=== PATIENT | male | born 1985 | race Two or more races ===

== ENCOUNTER 2017-10-11 17:12 | Emergency (ER) | payer OTHER ==
[~2017-10-11] VITALS: Ht 177.8 cm; Wt 122.5 kg
[2017-10-11] MEDS ORDERED: ATENOLOL 25 MG TAB PO ONE (19:00)
[2017-10-11 19:22] VITALS: BP 144/64
== END 2017-10-11 20:07 | disposition home or self-care (01) ==
LOC: ER 17:16
DX: R00.0 Tachycardia, unspecified (principal)
CPT/HCPCS: 82962; 93005

== ENCOUNTER 2018-10-13 07:46 | Emergency (ER) | payer MEDICAID, OTHER ==
[~2018-10-13] VITALS: Ht 177.8 cm; Wt 113.4 kg
[2018-10-13 08:11] LABS: Urine Bacteria FEW /hpf (None Seen); Urine Blood Negative /uL (Negative); Urine Mucus FEW (None Seen); Urine Specific Gravity 1.032 (1.001-1.035); Urine WBC 2 /hpf (0 - 3)
[2018-10-13 08:21] VITALS: BP 135/76
[2018-10-13] MEDS ORDERED: METHOCARBAMOL 500 MG TAB PO ONE (08:30)
== END 2018-10-13 08:56 | disposition home or self-care (01) ==
LOC: ER 07:46
DX: N39.0 Urinary tract infection, site not specified (principal); Z90.49 Acquired absence of other specified parts of digestive tract
CPT/HCPCS: 72100; 81001

== ENCOUNTER 2019-04-21 09:45 | Emergency (ER) | payer MEDICAID ==
[~2019-04-21] VITALS: Ht 177.8 cm; Wt 129.3 kg
[2019-04-21] MEDS ORDERED: NITROGLYCERIN 0.4 MG SL TAB SL ONE (10:00)
[2019-04-21] MEDS ORDERED: PANTOPRAZOLE 40 MG TAB PO ONE (10:00)
[2019-04-21] MEDS ORDERED: ASPirin 81 mg TAB PO ONE (10:00)
[2019-04-21 10:14] LABS: Basophils # (auto) 0 uL; Basophils % (auto) 0.5 % (0.0-2.0); Eosinophils # (auto) 0 uL; Eosinophils % (auto) 0.6 % (0.0-7.0); Hemoglobin 15.4 g/dL (13.5-17.5); Lymphocytes # (auto) 1.1 uL; Lymphocytes % (auto) 14.6 % (10.0-50.0); Mean Corpuscular Hemoglobin 31.7 pg (28.0-32.0); Mean Corpuscular Hgb Conc. 33.4 g/dL (32.0-36.0); Mean Corpuscular Volume 94.9 fL (80.0-100.0); Monocytes # (auto) 0.6 uL; Monocytes % (auto) 8.4 % (0.0-12.0); Neutrophils # (auto) 5.7 uL; Neutrophils % (auto) 75.9 % (37.0-80.0); Platelet Count (auto) 173 10^3/uL (140-450); Red Blood Cells 4.85 10^6/uL (4.5-5.90); White Blood Cell 7.5 10^3/uL (4.4-10.8)
[2019-04-21 10:29] LABS: Albumin 4.1 g/dL (3.4-5.0); Anion Gap 4 (5-15); Blood Urea Nitrogen 14 mg/dL (7-18); Carbon Dioxide 27 mmol/L (21-32); Chloride 107 mmol/L (98-107); Glucose 108 mg/dL (74-106); Potassium 3.9 mmol/L (3.5-5.1); Sodium 138 mmol/L (136-145)
[2019-04-21 10:34] LABS: Alanine Aminotransferase 64 U/L (16-61); Alkaline Phosphatase 85 U/L (45-117); Aspartate Aminotransferase 86 U/L (15-37); BUN/Creatinine Ratio 17.7; Bilirubin, Total 1.3 mg/dL (0.2-1.0); GFR African American 144 mL/min; GFR Non-African American 119 mL/min; Total Protein 7.9 g/dL (6.4-8.2)
[2019-04-21 15:30] VITALS: BP 118/75
== END 2019-04-21 15:40 | disposition home or self-care (01) ==
LOC: ER 09:48
DX: R07.2 Precordial pain (principal); K29.70 Gastritis, unspecified, without bleeding; K21.9 Gastro-esophageal reflux disease without esophagitis
CPT/HCPCS: 36415; 80053; 84484; 85025; 93005

== ENCOUNTER 2024-11-25 09:32 | Outpatient (CLI) | payer BC ==
[2024-11-25 10:03] LABS: Hematocrit 45.4 % (41.0-53.0); Hemoglobin 15.9 g/dL (13.5-17.5); Mean Corpuscular Hemoglobin 32.6 pg (28.0-32.0); Mean Corpuscular Volume 93.2 fL (80.0-100.0); Nucleated Red Blood Cells % 0.1 %
[2024-11-25 10:37] LABS: Urine Protein, UAD Negative (Negative)
[2024-11-25 11:27] LABS: Alanine Aminotransferase 20 U/L (7-40); Albumin 4.6 g/dL (3.2-4.8); Alkaline Phosphatase 100 U/L (46-116); Anion Gap 9 (5-15); BUN/Creatinine Ratio 22.1 (10.0-20.0); Bilirubin, Total 0.9 mg/dL (0.2-1.0); Blood Urea Nitrogen 17 mg/dL (9-23); Calcium 9.3 mg/dL (8.7-10.4); Carbon Dioxide 25 mmol/L (20-31); Potassium 4.0 mmol/L (3.5-5.1); Sodium 143 mmol/L (136-145); Total Protein 7.0 g/dL (5.7-8.2)
[2024-11-25 11:28] LABS: Chloride 109 mmol/L (98-107); Glucose 109 mg/dL (74-106)
[2024-11-25 12:11] LABS: Prostate Specific Antigen 0.37 ng/mL (0.0-4.0)
[2024-11-25 12:16] LABS: Free T4 (Free Thyroxine) 1.13 ng/dL (0.89-1.76)
[2024-11-25 12:26] LABS: Triglycerides 64 mg/dL (< 150)
[2024-11-25 12:28] LABS: Cholesterol 155 mg/dL (< 200); HDL Cholesterol 54 mg/dL (40-59)
[2024-11-25 16:28] LABS: Hepatitis A Total Antibody Negative (Negative); Hepatitis B Surface Antigen Negative (Negative); Hepatitis C Antibody Negative (Negative)
[2024-11-27 01:06] LABS: Chlamydia Trachomatis, NAA Negative (Negative); Neisseria gonorrhoeae, NAA Negative (Negative)
== END 2024-11-25 17:00 | disposition home or self-care (01) ==
LOC: LAB 09:32
PROVIDERS: ATTEND Nurse Practitioner Family
DX: E03.9 Hypothyroidism, unspecified (principal); E78.9 Disorder of lipoprotein metabolism, unspecified; E55.9 Vitamin D deficiency, unspecified; R73.9 Hyperglycemia, unspecified; Z12.5 Encounter for screening for malignant neoplasm of prostate; Z11.3 Encounter for screening for infections with a predominantly sexual mode of transmission
CPT/HCPCS: 36415; 80053; 80061; 81001; 82306; 83036; 84153; 84439; 84443; 85025; 86703; 86704; 86706; 86708; 86780; 86803; 87340

== ENCOUNTER 2025-01-22 13:33 | Emergency (ER) | payer BC ==
[~2025-01-22] VITALS: Ht 167.6 cm; Wt 77.2 kg
[2025-01-22 13:48] VITALS: TEMP 98.2
--- NOTE | 2025-01-22 14:18 | ED.PDOC ---
HPI Comments 39-year-old male presents here with chest discomfort. He states it is a burning pain that began around 10:00 p.m. last night and went to bed with it. He states he ate dinner at around 8:00 p.m. which is normal for him. He states pain lasts throughout the night. Went away by itself. He states he woke up this morning with discomfort again. Denies any radiation to the left jaw or left arm or anywhere else. States he has been well otherwise no recent fever chills cough c old runny nose. Currently chest pain-free. No significant family history of heart disease. not a smoker. Chief Complaint: Chest Pain Time Seen by MD: 15:15 Reviewed Notes: Nurses Notes, Medications, Allergies Allergies: Coded Allergies: NO KNOWN ALLERGIES (Unverified , 10/11/17) Information Source: Patient Mode of Arrival: Ambulatory Severity: Moderate Timing: Came on: Suddenly Duration: Since onset Prehospital treatment: None Location: Substernal Radiation: No Radiation Quality: Aching Onset: With Light Exertion Cardiac Risk Factors: None PE Risk Factors: None History of: None Associated Signs and Symptoms: None Past Medical History PAST MEDICAL HISTORY: GERD Surgical History: Denies all surgeries Family History Family History: Reviewed,noncontributory to illness, Unknown Social History Smoker: Non-Smoker Alcohol: Rarely, Unknown Drugs: Denies Drug Use Lives In: Home Constitutional: denies: chills, diaphoresis, fatigue, fever, malaise, sweats, weakness, others EENTM: denies: blurred vision, double vision, ear bleeding, ear discharge, ear drainage, ear pain, ear ringing, eye pain, eye redness, hearing loss, mouth pain, mouth swelling, nasal discharge, nose bleeding, nose congestion, nose pain, photophobia, tearing, throat pain, throat swelling, voice changes, others Respiratory: denies: cough, hemoptysis, orthopnea, SOB at rest, shortness of breath, SOB with excertion, stridor, wheezing, others Cardiovascular: denies: chest pain, dizzy spells, diaphoresis, Dyspnea on exertion, edema, irregular heart beat, left arm pain, lightheadedness, palpitations, PND, syncope, others Gastrointestinal: reports: abdominal pain; denies: abdomen distended, blood streaked bowels, constipated, diarrhea, dysphagia, difficulty swallowing, hematemesis, melena, nausea, poor appetite, poor fluid intake, rectal bleeding, rectal pain, vomiting, others Genitourinary: denies: burning, dysuria, flank pain, frequency, hematuria, incontinence, penile discharge, penile sore, pain, testicle pain, testicle swelling, urgency, others Neurological: denies: dizziness, fainting, headache, left sided numbness, left sided weakness, numbness, paresthesia, pre-existing deficit, right sided numbness, right sided weakness, seizure, speech problems, tingling, tremors, weakness, others Musculoskeletal: denies: back pain, gout, joint pain, joint swelling, muscle pain, muscle stiffness, neck pain, others Integumetry: denies: bruises, change in color, change in hair/nails, dryness, laceration, lesions, lumps, rash, wounds, others Allergic/Immunocompromised: denies: Difficulty Healing, Frequent Infections, Hives, Itching, others Hematologic/Lymphatic: denies: anemia, blood clots, easy bleeding, easy bruising, swollen glands, others Endocrine: denies: excessive hunger, excessive sweating, excessive thirst, excessive urination, flushing, intolerance to cold, intolerance to heat, unexplained weight gain, unexplained weight loss, others Psychiatric: denies: anxiety, bipolar disorder, depression, hopeless, panic disorder, schizophrenia, sleepless, suicidal, others All Other Systems: Reviewed and Negative Physical Exam General Appearance: No Apparent Distress, Normal HEENT: Normal ENT Inspection, Pharynx Normal, TMs Normal Neck: Full Range of Motion, Non-Tender, Normal, Normal Inspection Respiratory: Chest Non-Tender, Lungs Clear, No Accessory Muscle Use, No Respiratory Distress, Normal Breath Sounds Cardiovascular: No Edema, No JVD, No Murmur, No Gallop, Normal Peripheral Pulses, Regular Rate/Rhythm Breast Exam: Deferred Gastrointestinal: No Organomegaly, Non Tender, No Pulsatile Mass, Normal Bowel Sounds, Soft Genitalia: Deferred Pelvic: Deferred Rectal: Deferred Extremities: No calf tenderness, Normal capillary refill, Normal inspection, Normal range of motion, Non-tender, No pedal edema Musculoskeletal : Apperance: Normal Neurologic: Alert, public health technologist II-XII nml as Tested, No Motor Deficits, Normal Affect, Normal Mood, No Sensory Deficits Cerebellar Function: Normal Reflexes: Normal Skin: Dry, Normal Color, Warm Lymphatic: No Adenopathy EKG EKG : Pulse Rate (adult): 95 [place]: Normal Cardiac Rhythm: NSR Block: None Hypertrophy: None ST: Normal Comments Rate of [address] rhythm no significant ST changes Was a procedure done? Was a procedure done?: No CP Differential Dx Differential Diagnosis: N/A Differential Diagnosis: N/A Differential Diagnosis: Angina, Chest Wall Pain, Cholelithiasis, Esophageal reflux/spasm, Gastritis, Myocardial Infarction, Pericarditis, Pneumonia, Pulmonary Embolus X-Ray, Labs, Meds, VS Vital Signs Date Time Temp Pulse Resp B/P (MAP) Pulse Ox O2 Delivery O2 Flow Rate FiO2 01/22/25 15:21 95 01/22/25 13:48 98.2 96 18 154/90 96 98.2 01/22/25 13:35 95 Lab Test 01/22/25 16:36 01/22/25 15:29 Range/Units Troponin I High Sensitivity Pending < 3 L </=54 ng/L White Blood Count 8.9 4.4-10.8 10^3/uL Red Blood Count 5.00 4.5-5.90 10^6/uL Hemoglobin 15.9 13.5-17.5 g/dL Hematocrit 46.9 41.0-53.0 % Mean Corpuscular Volume 93.8 80.0-100.0 fL Mean Corpuscular Hemoglobin 31.7 28.0-32.0 pg Mean Corpuscular Hemoglobin Concent 33.8 32.0-36.0 g/dL Red Cell Distribution Width 13.5 11.8-14.3 % Platelet Count 195 140-450 10^3/uL Mean Platelet Volume 7.8 6.9-10.8 fL Neutrophils (%) (Auto) 70.5 37.0-80.0 % Lymphocytes (%) (Auto) 21.3 10.0-50.0 % Monocytes (%) (Auto) 7.3 0.0-12.0 % Eosinophils (%) (Auto) 0.6 0.0-7.0 % Basophils (%) (Auto) 0.3 0.0-2.0 % Neutrophils # (Auto) 6.3 1.6-8.6 10 ^3/uL Lymphocytes # (Auto) 1.9 0.4-5.4 10 ^3/uL Monocytes # (Auto) 0.7 0-1.3 10 ^3/uL Eosinophils # (Auto) 0 0-0.8 10 ^3/uL Basophils # (Auto) 0 0-0.2 10 ^3/uL Nucleated Red Blood Cells 0.1 % Sodium Level 142 136-145 mmol/L Potassium Level 3.8 3.5-5.1 mmol/L Chloride Level 106 98-107 mmol/L Carbon Dioxide Level 26 20-31 mmol/L Anion Gap 10 5-15 Blood Urea Nitrogen 16 9-23 mg/dL Creatinine 0.75 0.700-1.30 mg/dL Glomerular Filtration Rate Calc 116 >90 mL/min BUN/Creatinine Ratio 21.3 H 10.0-20.0 Serum Glucose 89 74-106 mg/dL Calcium Level 9.7 8.7-10.4 mg/dL [place] [id number] Ph: [phone] DIAGNOSTIC IMAGING Diagnostic Imaging Report : [id number] Signed PATIENT: ITALO CHAVIS ACCT: [id number] UNIT: [id number] : 1985 LOC: ER ROOM / BED: / AGE / SEX: 39 / M ADM STATUS: REG ER SERVICE 11 ORDERING PHYSICIAN: YASSINE GILL MD PROCEDURE(s): CXR2 - CHEST TWO VIEWS ROUTINE REASON: Chest pain ORDER NUMBER(s): [id number], ACCESSION NUMBER(s): [id number] EXAM: XY CHEST TWO VIEWS ROUTINE CLINICAL HISTORY: Chest pain TECHNIQUE: Frontal and lateral views of the chest WID: COMPARISON: None FINDINGS: Lines and tubes: None Chest: The heart size and pulmonary vasculature is within normal limits. No pleural effusion, pneumothorax, or consolidation. The osseous structures are grossly intact. IMPRESSION: 1. No acute cardiopulmonary abnormality. ATED BY: GERONIMO MERA MD DICTATED DATE/TIME: 01/22/251542 SIGNED BY: GERONIMO MERA MD SIGNED DATE/TIME: 01/22/251542 CC: 39-year-old male presents here with burning like chest discomfort last night and this morning. Currently chest pain free. Patient has a heart score of 1 at this time. EKGs unremarkable. Troponin x1 is negative. At this time low suspicion for acute coronary syndrome. Patient does have a PCP advised him to follow up with the PCP for further evaluation. Patient agreeable. Advised him we wait for 2nd troponin and if it is negative we will discharge him home. Patient agreeable. CBC BMP unremarkable. Chest x-ray with no evidence of pneumonia or other pathology. Time of 1ST Reevaluation: 15:45 Reevaluation 1ST: Unchanged Patient Education/Counseling: Diagnosis, Treatment, Prognosis Family Education/Counseling: No Family Present SEPSIS Sepsis Screen Date sepsis recognized/suspect: Jan 22, 2025 Time Sepsis recognized/suspect: 8 Recent Procedure: No On Antibiotic Therapy: No Respiratory Rate >20: No Heart Rate >90: Yes Temp<36 C (96.8 F) or >38.3 C: No SBP <90 or MAP <65 mmHG: No New Acute Mental Status Change: No Is the patient on CPAP, BIPAP,: No Physician Orders Electrocardigram (01/22/25 14:54) Electrocardigram (01/22/25 15:54) Electrocardigram (01/22/25 17:54) Troponin-I Hs (01/22/25 16:12) Troponin-I Hs (01/22/25 18:12) Chest Two Views Routine (01/22/25 15:12) Vital Signs Date Time Temp Pulse Resp B/P (MAP) Pulse Ox O2 Delivery O2 Flow Rate FiO2 01/22/25 15:21 95 01/22/25 13:48 98.2 96 18 154/90 96 98.2 01/22/25 13:35 95 Laboratory Tests Test 01/22/25 15:29 White Blood Count 8.9 10^3/uL (4.4-10.8) Departure 1 Departure Time of Disposition: 16:59 Impression: Primary Impression: Chest pain Qualified Codes: R07.9 - Chest pain, unspecified Disposition: 01 HOME / SELF CARE / HOMELESS Condition: Fair Additional Instructions: Follow up with the primary care physician in 2-3 days. Return to the ER if symptoms worsen or persist. Discharged With: Self Critical Care Note Critical Care Time?: No Stability Stability form required: No Heart Score Heart Score: Heart Score Response (Comments) Value History Slightly Suspicious 0 EKG Normal 0 Age <45 0 Risk Factors 1 or 2 risk factors 1 Troponin Normal limit 0 Total 1 I personally scribed for YASSINE GILL MD ([email or web address]) on 01/22/25 at 15:21. Electronically submitted by Reinaldo Navarro ([employer]). I personally scribed for YASSINE GILL MD ([email or web address]) on 01/22/25 at 16:30. Electronically submitted by Reinaldo Navarro ([employer]). YASSINE GILL MD Jan 22, 2025 14:18
[2025-01-22 15:39] LABS: Hematocrit 46.9 % (41.0-53.0); Hemoglobin 15.9 g/dL (13.5-17.5); Mean Corpuscular Hemoglobin 31.7 pg (28.0-32.0); Mean Corpuscular Volume 93.8 fL (80.0-100.0); Nucleated Red Blood Cells % 0.1 %
[2025-01-22 15:45] LABS: Chloride 106 mmol/L (98-107); Potassium 3.8 mmol/L (3.5-5.1); Sodium 142 mmol/L (136-145)
[2025-01-22 15:46] LABS: Anion Gap 10 (5-15); Calcium 9.7 mg/dL (8.7-10.4); Carbon Dioxide 26 mmol/L (20-31)
--- NOTE | 2025-01-22 15:46 | DVH ---
EXAM: XY CHEST TWO VIEWS ROUTINE CLINICAL HISTORY: Chest pain TECHNIQUE: Frontal and lateral views of the chest WID: COMPARISON: None FINDINGS: Lines and tubes: None Chest: The heart size and pulmonary vasculature is within normal limits. No pleural effusion, pneumothorax, or consolidation. The osseous structures are grossly intact. IMPRESSION: 1. No acute cardiopulmonary abnormality.
[2025-01-22 15:51] LABS: BUN/Creatinine Ratio 21.3 (10.0-20.0); Blood Urea Nitrogen 16 mg/dL (9-23); Glucose 89 mg/dL (74-106)
[2025-01-22 17:57] VITALS: BP 133/78; PULSE 89; RESP 18; O2SAT 98
--- NOTE | 2025-01-22 18:53 | ECG ---
[facility] Test Date: 2025-01-22 Test Time: 13:35:52 Pat Name: ITALO CHAVIS Department: ED Room: Gender: M [employer] Marker: akbar : 1985 Requested By: YASSINE GILL Order Number: [id number] Reading MD: Gary Anguiano Measurements Intervals [place] Rate: 95 P: 38 OR: 168 QRS: 30 QRSD: 87 T: 0 QT: 336 QTc: 423 Interpretive Statements Sinus rhythm Electronically Signed On 01-23-2025 20:38:17 PDT by Gary Anguiano Please click the below link to view image of tracing.
== END 2025-01-22 18:00 | disposition home or self-care (01) ==
LOC: ER 13:33
DX: R07.89 Other chest pain (principal)
CPT/HCPCS: 36415; 71046; 80048; 84484; 85025; 93005

== ENCOUNTER 2025-03-09 09:23 | Outpatient (CLI) | payer BC ==
--- NOTE | 2025-03-10 16:39 | DVHSR ---
APPROVED REPORT EXAM: Two-dimensional and M-mode echocardiogram with Doppler and color Doppler. INDICATION Chest Pain RISK FACTORS Obesity: Height: 70, Weight: 280 DIMENSIONS LVDd (3.8-5.7cm) LA (2D) 3.2 (1.9-4.0cm) Aortic Root 4.1 (2.0-3.7cm) LVDs (2.5-4.0cm) LA (MM) (1.9-4.0cm) Aortic Cusp Exc 2.2 (1.5-2.0cm) EF (%) 61.0 (55-70%) Rt. Atrium 4.8 (1.9-4.0cm) Asc. Aorta cm Mitral Valve Mitral Mitral Stenosis E wave 0.76m/s MV Mean GR. mmHg A wave 0.77m/s MV Peak GR. mmHg E/A ratio 1.0 2D MVA cm2 DECEL Time 242ms PRESS 1/2 Time ms Aortic Valve Aortic Valve Aortic Stenosis V1 1.04m/s AO Mean GR. 2mmHg V2 1.00m/s AO Peak GR. 4mmHg LVOT Diameter 2.6 (1.8-2.4cm) Doppler ELVIN 5.52cm2 Pulmonic Valve V2 0.85m/s Other Information Technically limited study due to body habitus. Conclusion Sinus rhythm. Off axis views. Right atrial enlargement. Mild aortic root enlargement. Valves are normal. EF of 65% with normal RV function. Dopplers unremarkable. No pericardial effusion masses or vegetations discernible.
== END 2025-03-09 17:00 | disposition home or self-care (01) ==
LOC: XYW 09:23
PROVIDERS: ATTEND Internal Medicine
DX: I51.7 Cardiomegaly (principal); R07.9 Chest pain, unspecified
CPT/HCPCS: 93306

== ENCOUNTER 2025-03-09 09:56 | Outpatient (CLI) | payer BC ==
[2025-03-09 11:06] LABS: Free T3 3.77 pg/mL (2.3-4.2)
[2025-03-09 11:07] LABS: Free T4 (Free Thyroxine) 1.11 ng/dL (0.89-1.76)
== END 2025-03-09 17:00 | disposition home or self-care (01) ==
LOC: LAB 09:56
PROVIDERS: ATTEND Internal Medicine
DX: E66.01 Morbid (severe) obesity due to excess calories (principal); K59.09 Other constipation; K76.0 Fatty (change of) liver, not elsewhere classified; R00.2 Palpitations
CPT/HCPCS: 36415; 84439; 84443; 84481; 85652; 86141

== ENCOUNTER → 2025-04-02 | Outpatient (CLI) | payer BC ==
[2025-04-02 08:11] VITALS: BP 149/83; PULSE 86; RESP 16
--- NOTE | 2025-04-02 09:22 | DVHCARD ---
Cardiology Stress Test [place] Treadmill Stress Test [place] Referring MD: MD Silvio Protocol: Richie (without cardiolite) Reason for referral: Chest Pain Target heart Rate:@85%: 152 Percent MPHR: 179 METS: 10.4 Resting Heart rate: 86 Resting Blood Pressure: 149/83 Exercise Heart Rate: 169 Exercise Blood Pressure: 231/111 Baseline EKG: Normal sinus rhythm Stress EKG: Sinus tachycardia Functional Capacity: Mildly Decreased Heart Rate Response: Adequate Blood Pressure Response: Hypertensive Clinical response: Non-ischemic Arrhythmia?: No Cardiolite Injected?: No ST-T Changes: Non/Minimal Probability of Inducible Ische: Low Date of Service: Apr 02, 2025 Billing Provider: NOEMI ROBERTS Cardiology Common Codes: PROCEDURE ONLY Treadmill w/o Cardiolite: [id number], INTERP, RPT NOEMI ROBERTS Apr 02, 2025 09:22
== END | disposition home or self-care (01) ==
LOC: XYW 07:50
PROVIDERS: ATTEND Internal Medicine
DX: R07.9 Chest pain, unspecified (principal); R00.0 Tachycardia, unspecified
CPT/HCPCS: 93017